=== PATIENT | male | born 1975 | race Caucasian/White ===

== ENCOUNTER 2020-01-22 22:45 | Emergency (ER) | payer OTHER ==
[~2020-01-22] VITALS: Ht 177.8 cm; Wt 100.0 kg
[2020-01-22 23:17] LABS: BASO # 0.1 x10^3/uL (0.0-0.2); BASO % 1 % (0-3); EOS # 0.1 x10^3/uL (0.0-0.7); EOS % 1 % (0-3); HEMATOCRIT 39.9 % (39.0-53.0); HEMOGLOBIN 13.7 g/dL (13.0-17.5); LYMPH # 1.6 x10^3/uL (1.0-4.8); LYMPH % 20 % (24-48); MEAN CORPUSCULAR HEMOGLOBIN 28 pg (25-35); MEAN CORPUSCULAR HGB CONC 34 g/dL (31-37); MEAN CORPUSCULAR VOLUME 81 fL (79-100); MONO # 0.7 x10^3/uL (0.0-1.1); MONO % 9 % (0-9); NEUT # 5.5 x10^3/uL (1.8-7.7); NEUT % 69 % (31-73); PLATELET COUNT 214 x10^3/uL (140-400); RED BLOOD COUNT 4.95 x10^6/uL (4.30-5.70); RED CELL DISTRIBUTION WIDTH 14.2 % (11.5-14.5); WHITE BLOOD COUNT 7.9 x10^3/uL (4.0-11.0)
[2020-01-22 23:26] LABS: PROTHROMBIN TIME PATIENT 13.6 SEC (11.7-14.0)
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
[2020-01-23] MEDS ORDERED: DIPH,PERTUSS(ACELL),TET VAC/PF 0.5 ML SYRINGE. VAX IM ONE (00:30)
[2020-01-23 00:50] LABS: CALCIUM 8.1 mg/dL (8.5-10.1); CREATININE 0.9 mg/dL (0.7-1.3); GFR 92.1; POTASSIUM 4.1 mmol/L (3.5-5.1)
[2020-01-23 00:56] LABS: ALBUMIN 3.4 g/dL (3.4-5.0); ALBUMIN/GLOBULIN RATIO 0.9 (1.0-1.7); TOTAL BILIRUBIN 1.1 mg/dL (0.2-1.0); TOTAL PROTEIN 7.2 g/dL (6.4-8.2)
[2020-01-23 02:00] VITALS: BP 156/86
[2020-01-23] MEDS ORDERED: IBUP-1060 PO (02:10)
[2020-01-23] MEDS ORDERED: traMADol 50 MG TABLET PO ONE (02:15)
[2020-01-23] MEDS ORDERED: KETOROLAC 30 MG/ML VIAL. IVP ONE (02:15)
[2020-01-23 02:18] LABS: BILIRUBIN,URINE NEGATIVE (NEG); CLARITY,URINE CLEAR; COLOR,URINE YELLOW; NITRITE,URINE NEGATIVE (NEG); PH,URINE 6.5 (<5.0-8.0); PROTEIN,URINE NEGATIVE (NEG-TRACE)
[2020-01-23 02:23] LABS: BACTERIA,URINE 0 /HPF (0-FEW); RBC,URINE 0 /HPF (0-2); SQUAMOUS EPITHELIAL CELL,UR OCC /LPF
[2020-01-23 02:25] LABS: AMPHETAMINE/METHAMPHETAMINE POS (NEG); BARBITURATES NEG (NEG); BENZODIAZEPINES NEG (NEG); CANNABINOIDS NEG (NEG); COCAINE NEG (NEG); METHADONE NEG (NEG); OPIATES POS (NEG); PHENCYCLIDINE POS (NEG)
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
--- NOTE | 2020-01-25 06:16 | EKG ---
[facility] [address] [place] [address] Test Date: 2020-01-22 Test Time: 23:32:48 Pat Name: ROSIBEL BLACK Department: Room: Gender: M Cleaning Technician: : 1975 Requested By: FLAVIO WOODRUFF Order Number: [id number] Reading MD: Jerman Irizarry MD Measurements Intervals Wyatt Rate: 85 P: 41 NH: 140 QRS: 12 QRSD: 84 T: 26 QT: 354 QTc: 427 Interpretive Statements SINUS RHYTHM Electronically Signed On 01-25-2020 13:17:44 CDT by Jerman Irizarry MD
== END 2020-01-23 02:27 | disposition home or self-care (01) ==
LOC: ER 22:45
DX: S52.572A Other intraarticular fracture of lower end of left radius, initial encounter for closed fracture (principal); S00.83XA Contusion of other part of head, initial encounter; M25.562 Pain in left knee; M25.561 Pain in right knee; M25.532 Pain in left wrist; R51 Headache; M54.5 Low back pain; V89.2XXA Person injured in unspecified motor-vehicle accident, traffic, initial encounter; Y93.89 Activity, other specified; Y92.413 State road as the place of occurrence of the external cause; Y99.8 Other external cause status
CPT/HCPCS: 29125; 36415; 70450; 70486; 71045; 72125; 72128; 72131; 72170; 73090; 73110; 73562; 80053; 80307; 81001; 82150; 83690; 85025; 85610; 85730; 96374; 99285; G0480; J1885; 93005